=== PATIENT | male | born 1995 | race Caucasian/White ===

== ENCOUNTER 2017-09-03 20:24 | Emergency (ER) | payer BC, OTHER ==
[~2017-09-03] VITALS: Ht 167.6 cm; Wt 63.5 kg
[2017-09-03] MEDS ORDERED: ROBITUSSIN PO (20:42)
[2017-09-03] MEDS ORDERED: DIPHENOXYLATE HCL/ATROP SULF TABLET PO ONE (21:30)
[2017-09-03] MEDS ORDERED: predniSONE 20 MG TABLET PO ONE (21:30)
--- NOTE | 2017-09-03 21:31 | NUR ---
Patient discharged to home in stable conditon. Written and verbal after care instructions given. Patient verbalizes understanding of instructions.
[2017-09-03] MEDS ORDERED: DIPHENOXYLATE HCL/ATROP SULF TABLET ONE (21:46)
[2017-09-03] MEDS ORDERED: predniSONE 20 MG TABLET ONE (21:47)
== END 2017-09-03 21:32 | disposition home or self-care (01) ==
LOC: ER 20:25
DX: R05 Cough (principal); R19.7 Diarrhea, unspecified
CPT/HCPCS: 71045; 99283; A4663; J7512